=== PATIENT | female | born 1950 | race Caucasian/White ===

== ENCOUNTER 2016-12-25 09:02 | Day surgery (SDC) | payer MEDICARE, OTHER ==
[2016-12-20 17:58] VITALS: BMI 29.9
[~2016-12-25 09:02] MED LIST: LACTATED RINGERS 1,000 ML IV SCH; LIDOCAINE 1% 20 ML VIAL (10MG/ML) FOR IV START INTRADERMA PRN
[2016-12-25 09:20] VITALS: RESP 16; TEMP 98.6
--- NOTE | 2016-12-25 10:01 | P.GSHP ---
History of Present Illness H&P Date: 12/25/16 CHIEF COMPLAINT: GERD and colon screen HISTORY OF PRESENT ILLNESS: The patient is a 66-year-old male who presents reports gastroesophageal reflux disease and need for colon screen. Upper and lower endoscopy were offered for further evaluation and management. PAST MEDICAL HISTORY: Please see list. PAST SURGICAL HISTORY: Please see list. MEDICATIONS: Please see list. ALLERGIES: Please see list. SOCIAL HISTORY: No illicit drug use FAMILY HISTORY: No reports of Crohn disease or ulcerative colitis. REVIEW OF ORGAN SYSTEMS: CONSTITUTIONAL: No reports of fevers or chills. GI: Denies any blood in stools or constipation. PHYSICAL EXAM: VITAL SIGNS: Stable GENERAL: Well-developed pleasant in no acute distress. HEENT: No scleral icterus. Extraocular movements grossly intact. Moist buccal mucosa. NECK: Supple without lymphadenopathy. CHEST: Unlabored respirations. Equal bilateral excursions. CARDIOVASCULAR: Regular rate and rhythm. Distal 2+ pulses. ABDOMEN: Soft, nondistended. MUSCULOSKELETAL: No clubbing, cyanosis, or edema. ASSESSMENT: 1. Gastroesophageal reflux disease 2. Colon screen. PLAN: 1. Recommend proceeding with an upper and lower endoscopy Past Medical History Past Medical History: GERD/Reflux, Hyperlipidemia, Hypertension Additional Past Medical History / Comment(s): hx:diverticulosis(per old hx), back pain, hiatal hernia, History of Any Multi-Drug Resistant Organisms: None Reported Past Surgical History: Section, Tubal Ligation Additional Past Surgical History / Comment(s): bilateral bunionectomy, colonoscopy Past Anesthesia/Blood Transfusion Reactions: No Reported Reaction Past Psychological History: Anxiety, Depression Smoking Status: Never smoker Past Alcohol Use History: None Reported, Heavy Additional Past Alcohol Use History / Comment(s): past hx binge drinking stopped 6 months ago Past Drug Use History: None Reported - Past Family History Father Additional Family Medical History / Comment(s): comitted suiscide Mother Family Medical History: CVA/TIA, Dementia Medications and Allergies Home Medications Medication Instructions Recorded Confirmed Type Atenolol [Tenormin] 50 mg PO DAILY 01/19/15 12/25/16 History Lansoprazole [Prevacid] 30 mg PO DAILY 01/19/15 12/25/16 History amLODIPine [Norvasc] 10 mg PO DAILY 01/19/15 12/25/16 History DULoxetine HCL [Cymbalta] 60 mg PO DAILY 12/20/16 12/25/16 History Allergies Allergy/AdvReac Type Severity Reaction Status Date / Time No Known Allergies Allergy Verified 12/20/16 17:51 Surgical - Exam Vital Signs Temp Pulse Resp BP Pulse Ox 98.6 F 64 16 132/87 96 12/25/16 09:19 12/25/16 09:19 12/25/16 09:19 12/25/16 09:19 12/25/16 09:19
[2016-12-25] MEDS ORDERED: PROPOFOL 10 MG/ML 20 ML VIAL IV ONE (10:07)
[2016-12-25] MEDS ORDERED: LIDOCAINE 1% INJ 10MG/ML (20 ML MDV) ONE (10:07)
--- NOTE | 2016-12-25 10:40 | P.PCN ---
Date of Procedure: 12/25/16 Preoperative Diagnosis: Postoperative Diagnosis: Procedure(s) Performed: Implants: Indications for Procedure: Operative Findings: Description of Procedure: PREOPERATIVE DIAGNOSIS: Colonoscopy screening. POSTOPERATIVE DIAGNOSIS: Colonoscopy screening. Diverticulosis, scattered. OPERATION: Colonoscopy to the ileocecal valve and appendiceal orifice. SURGEON: Ena Joyce MD. ANESTHESIA: MAC. INDICATIONS: The patient is a 66-year-old female who presents for colonoscopy screening. Benefits and risks were described and informed consent was obtained. DESCRIPTION OF PROCEDURE: The patient had undergone Gatorade, MiraLAX and Dulcolax prep. She had been brought into the operating room and laid in the left lateral decubitus position. After adequate intravenous sedation, the rectum was examined with 2% lidocaine jelly. No external hemorrhoids were encountered. The rectal tone was within normal limits. No lesions were palpated in the rectal vault. An Olympus colonoscope was advanced until the ileocecal valve and appendiceal orifice were clearly viewed. The prep was excellent with clear visualization of the mucosal folds. The scope was removed with visualization of each mucosal fold. Scattered diverticulosis was encountered. No colonic polyps were found. No evidence of focal colitis was found. Retroflexion of the scope demonstrated grade 1 internal hemorrhoids without active bleeding or inflammation. The colon was desufflated. The patient had tolerated the procedure well. Withdrawal time was over 6 minutes. FINDINGS: Internal hemorrhoids, grade 1 No external prolapsed hemorrhoids. No arteriovenous malformations. No adenomatous polyps. No focal colitis. RECOMMENDATIONS: Lower endoscopy every 10 years per screening guidelines, 2026.
--- NOTE | 2016-12-25 10:43 | P.PCN ---
Date of Procedure: 12/25/16 Preoperative Diagnosis: Postoperative Diagnosis: Procedure(s) Performed: Implants: Indications for Procedure: Operative Findings: Description of Procedure: PREOPERATIVE DIAGNOSIS: Gastroesophageal reflux disease. POSTOPERATIVE DIAGNOSIS: Chronic gastritis with stigmata of prior bleed Diaphragmatic hiatal hernia, sliding type. Gastric polyps. Gastroesophageal reflux disease. OPERATION: Esophagogastroduodenoscopy with biopsies along antrum. SURGEON: Ena Joyce MD ANESTHESIA: MAC. INDICATIONS: The patient is a 66-year-old female who presents with a history of reflux disease. Benefits and risks of the procedure were described. Informed consent was obtained. DESCRIPTION: The patient was brought into the endoscopy suite and laid in the left lateral decubitus position. An Olympus gastroscope was passed along the posterior oropharynx down to the distal esophagus where the squamocolumnar junction was encountered at 35 cm from the incisors. The stomach was entered and minimal bile reflux was found. Multiple gastric polyps were identified along the fundus. Additional findings are listed below. Biopsies with cold forceps were obtained of the antrum. The first through third portion of the duodenum was examined and unremarkable. Retroflexion of the scope confirmed Hill grade 4 lower esophageal valve. The squamocolumnar junction demostrated LA grade B erosive esophagitis. The stomach was desufflated. The patient tolerated the procedure well. FINDINGS: Squamocolumnar junction 35 cm from the incisors. Diaphragmatic hiatus at 40 cm from the incisors. Diaphragmatic hiatal hernia sliding type 5 cm. Hill grade 4 lower esophageal valve. LA grade B erosive esophagitis. Multiple gastric polyps. No active duodenitis. RECOMMENDATIONS: Continue medical therapy. Further recommendations pending results of pathology report. Upper endoscopy as needed. Plan - Discharge Summary New Discharge Prescriptions: No Action amLODIPine [Norvasc] 10 mg PO DAILY Lansoprazole [Prevacid] 30 mg PO DAILY Atenolol [Tenormin] 50 mg PO DAILY DULoxetine HCL [Cymbalta] 60 mg PO DAILY Discharge Medication List Atenolol [Tenormin] 50 mg PO DAILY 01/19/15 [History] Lansoprazole [Prevacid] 30 mg PO DAILY 01/19/15 [History] amLODIPine [Norvasc] 10 mg PO DAILY 01/19/15 [History] DULoxetine HCL [Cymbalta] 60 mg PO DAILY 12/20/16 [History] Follow up Appointment(s)/Referral(s): Ena Joyce MD [STAFF PHYSICIAN] - 01/07/17 Patient Instructions/Handouts: Hiatal Hernia (GEN), Diverticulosis (DC), Diverticulosis Diet (GEN) Activity/Diet/Wound Care/Special Instructions: Repeat colonoscopy in 10 years, 2026 Discharge Disposition: HOME SELF-CARE
[2016-12-25 11:09] VITALS: BP 118/76; PULSE 61
== END 2016-12-25 11:33 | disposition home or self-care (01) ==
LOC: ORWHC2ENDO 09:02
PROVIDERS: ATTEND Surgery Plastic and Reconstructive Surgery
DX: Z12.11 Encounter for screening for malignant neoplasm of colon (principal); K29.50 Unspecified chronic gastritis without bleeding; K44.9 Diaphragmatic hernia without obstruction or gangrene; K31.7 Polyp of stomach and duodenum; K21.0 Gastro-esophageal reflux disease with esophagitis; K57.30 Diverticulosis of large intestine without perforation or abscess without bleeding; K64.0 First degree hemorrhoids; E78.5 Hyperlipidemia, unspecified; I10 Essential (primary) hypertension; F41.9 Anxiety disorder, unspecified; F32.9 Major depressive disorder, single episode, unspecified; Z79.899 Other long term (current) drug therapy
CPT/HCPCS: 88305; 88342; 43239; J2001; J2704; G0121; 45378

== ENCOUNTER → 2017-02-10 | Outpatient (CLI) | payer MEDICARE, OTHER ==
[2017-02-10 14:51] LABS: EKG EKG PERFORMED
[2017-02-10 15:14] LABS: CH 28.8; CHCM 32.5; HDW 2.45; HGB 14.7 gm/dL (11.4-16.0); MCHC 32.6 g/dL (31.0-37.0); MCV 88.9 fL (80.0-100.0); Mean Platelet Volume 6.6; RBC 5.07 m/uL (3.80-5.40); RDW 13.4 % (11.5-15.5); WBC 7.3 k/uL (3.8-10.6)
[2017-02-10 15:23] LABS: ALT 33 U/L (9-52); AST 20 U/L (14-36); Alkaline Phosphatase 120 U/L (38-126); Anion Gap 13 mmol/L; Blood Urea Nitrogen 16 mg/dL (7-17); Calcium 9.9 mg/dL (8.4-10.2); Carbon Dioxide 24 mmol/L (22-30); Chloride 106 mmol/L (98-107); Glucose 129 mg/dL (74-99); Non-African American GFR(MDRD) >60 (>60 ml/min/1.73 sqM); Potassium 4.1 mmol/L (3.5-5.1); Sodium 143 mmol/L (137-145); Total Bilirubin 0.6 mg/dL (0.2-1.3); Total Protein 7.4 g/dL (6.3-8.2)
== END | disposition home or self-care (01) ==
LOC: LABWHC1 14:38
PROVIDERS: ATTEND Surgery Plastic and Reconstructive Surgery
DX: Z01.812 Encounter for preprocedural laboratory examination (principal)
CPT/HCPCS: 36415; 80053; 85027; 93005

== ENCOUNTER 2017-02-14 07:30 | Inpatient (IN) | payer MEDICARE, OTHER ==
[2017-02-10 10:57] VITALS: BMI 29.9
[~2017-02-14 07:30] MED LIST changes: +DEXAMETHASONE SOD PHOSPHATE 10 MG/ML 1 ML VIAL IV ONE; +HEPARIN SODIUM,PORCINE 5,000 UNIT/ML 1 ML VIAL SQ ONE; +HYDROmorphone 1 MG/ML 1 ML SYRINGE IVP PRN; -LACTATED RINGERS 1,000 ML IV SCH; -LIDOCAINE 1% 20 ML VIAL (10MG/ML) FOR IV START INTRADERMA PRN; +ONDANSETRON 4 MG/2 ML VIAL IVP ONE; +ceFAZolin 2 GM in SODIUM CHLORIDE 0.9% 100 ML IVPB ONE
--- NOTE | 2017-02-14 08:44 | P.GSHP ---
History of Present Illness H&P Date: 02/14/17 CHIEF COMPLAINT: Gastroesophageal reflux disease. HISTORY OF PRESENT ILLNESS: Angela He is a 66 year-old female who presents with moderate to severe gastroesophageal reflux disease. Upon her last evaluation, she now has completed an upper endoscopy. For her upper endoscopy, findings had included diaphragmatic hiatal hernia and gastric polyps. She also completed a colonoscopy for which she denies any blood in her stools. Separately, evidence of diverticulosis was found. She now presents for further evaluation and management. PAST MEDICAL HISTORY: Please see list. PAST SURGICAL HISTORY: Please see list. MEDICATIONS: Please see list. ALLERGIES: Please see list. SOCIAL HISTORY: No illicit drug use FAMILY HISTORY: No reports of Crohn disease or ulcerative colitis. REVIEW OF ORGAN SYSTEMS: Constitutional: Reports over a 20-30 pound weight loss in the past several years. No fevers or chills. HEENT: Denies any trouble with vision, hearing or nosebleeds. No difficulty swallowing. LYMPHATIC: The patient denies any lumps and bumps around the neck. ENDOCRINE: Denies any thyroid disorders. Denies any blood sugar glucose intolerance. RESPIRATORY: Denies pneumonia. Denies any troubles with breathing or dyspnea on exertion. CARDIOVASCULAR: Denies any chest pain, palpitations, or recent heart attacks. GASTROINTESTINAL: Denies fatty food intolerance. Denies change in bowel habits and gas bloat. Gastroesophageal reflux disease. GENITOURINARY: Denies any blood in urine or increased urinary frequency. MUSCULOSKELETAL: Denies any back pain, stiffness or joint arthritis. NEUROLOGIC: Denies any numbness or tingling along the distal extremities. No seizure disorders or headaches. PSYCHIATRIC: Denies any depression or suicidal ideation. HEMATOLOGIC: Denies any abnormal bleeding or bruising. BREASTS: Denies any breast lumps, pain or nipple discharge. PHYSICAL EXAM: VITAL SIGNS: Stable Patient is a 66-year-old female. GENERAL: Well developed and in no acute distress. Pleasant. HEENT: No sclera icterus. Extraocular movements grossly intact. Moist buccal mucosa. Head is atraumatic, normocephalic. Hears conversational speech. No nasal drainage. NECK: Supple without lymphadenopathy. No JV distention. CHEST: Non-labored respirations and equal bilateral excursions. CARDIOVASCULAR: Regular rate and rhythm. Palpable 2+ radial pulses. ABDOMEN: Soft. Non-tender. Nondistended. MUSCULOSKELETAL: No clubbing, cyanosis or edema. NEUROLOGIC: No focal or lateralizing signs. PSYCH: Appropriate affect. Alert and oriented to person, place and time. STUDIES: Lower endoscopy was consistent with diverticulosis. No evidence of polyps was found. Upper endoscopy was consistent with 5 cm diaphragmatic hiatal hernia including gastric polyps. PATHOLOGY REPORT: Demonstrated no evidence of H.pylori gastritis. Chronic gastritis was identified however. ASSESSMENT: 1. Diaphragmatic paraesophageal hiatal hernia with severe gastroesophageal reflux disease. PLAN: 1. Recommend proceeding with a laparoscopic paraesophageal hiatal hernia with possible mesh. 2. Benefits and risks of surgical intervention was discussed including possibility of open technique. 3. Inpatient hospitalization recommended of 2 nights or less. 4. DVT prophylaxis. 5. Antibiotic prophylaxis. 6. Preoperative including. This and I reviewed in detail. Past Medical History Past Medical History: GERD/Reflux, Hyperlipidemia, Hypertension Additional Past Medical History / Comment(s): hx:diverticulosis(per old hx), back pain, hiatal hernia,. PAST HX KIDNEY STONES History of Any Multi-Drug Resistant Organisms: None Reported Past Surgical History: Section, Tubal Ligation Additional Past Surgical History / Comment(s): bilateral bunionectomy, colonoscopy, RECENT EGD AND COLONOSCOPY -12/25/16, ALSO HAD PRIOR LITHOTRIPSY Past Anesthesia/Blood Transfusion Reactions: No Reported Reaction Smoking Status: Never smoker - Past Family History Father Additional Family Medical History / Comment(s): comitted suiscide Mother Family Medical History: CVA/TIA, Dementia, Deep Vein Thrombosis (DVT) Medications and Allergies Home Medications Medication Instructions Recorded Confirmed Type Atenolol [Tenormin] 50 mg PO DAILY 01/19/15 02/10/17 History Lansoprazole [Prevacid] 30 mg PO DAILY 01/19/15 02/10/17 History amLODIPine [Norvasc] 10 mg PO DAILY 01/19/15 02/10/17 History DULoxetine HCL [Cymbalta] 60 mg PO DAILY 12/20/16 02/10/17 History Allergies Allergy/AdvReac Type Severity Reaction Status Date / Time No Known Allergies Allergy Verified 02/10/17 10:53
[2017-02-14] MEDS ORDERED: SCOPOLAMINE 1.5MG/72HR PATCH TRANSDERM STA (08:46)
[2017-02-14] MEDS: LACTATED RINGERS 1,000 ML IV SCH (09:21)
[2017-02-14] MEDS: ACETAMINOPHEN IV (For NPO) 1,000 MG in EMPTY BAG 1 BAG IVPB ONE ×2 (09:34→10:14)
[2017-02-14] MEDS ORDERED: GLYCOPYRROLATE 0.2 MG/ML 2 ML VIAL ONE (10:37)
[2017-02-14] MEDS ORDERED: fentaNYL (PF) 50 MCG/ML 2 ML AMP ONE (10:37)
[2017-02-14] MEDS ORDERED: ePHEDrine 50 MG/ML 1 ML AMP ONE (10:37)
[2017-02-14] MEDS ORDERED: SUCCINYLCHOLINE CHLORIDE 100 MG/5 ML SYR IV ONE (10:37)
[2017-02-14] MEDS ORDERED: NEOSTIGMINE 1 MG/ML 10 ML VIAL ONE (10:37)
[2017-02-14] MEDS ORDERED: PROPOFOL 10 MG/ML 20 ML VIAL IV ONE (10:37)
[2017-02-14] MEDS ORDERED: KETOROLAC 30 MG/ML 1 ML VIAL ONE (10:37)
[2017-02-14] MEDS ORDERED: MIDAZOLAM 2 MG/2 ML VIAL ONE (10:37)
[2017-02-14] MEDS ORDERED: LIDOCAINE 1% INJ 10MG/ML (20 ML MDV) ONE (10:37)
[2017-02-14] MEDS ORDERED: ROCURONIUM BROMIDE 10 MG/ML 10 ML VIAL IV ONE (10:37)
[2017-02-14] MEDS ORDERED: BUPIVACAIN-EPI 0.25%-1:200,000 30 ML VIAL SQ ONE (11:09)
[2017-02-14] MEDS ORDERED: LACTATED RINGERS 1,000 ML IV ONE ×2 (12:07→13:59)
[2017-02-14] MEDS ORDERED: ONDANSETRON 4 MG/2 ML VIAL IVP PRN (13:07)
[2017-02-14] MEDS ORDERED: diphenhydrAMINE 50 MG/ML 1 ML VIAL IVP PRN (13:07)
[2017-02-14] MEDS ORDERED: HYDROcodone/APAP 15 ML SOLUTION PO PRN (13:07)
[2017-02-14] MEDS ORDERED: NALOXONE 0.4 MG/ML 1 ML VIAL IV PRN (13:07)
--- NOTE | 2017-02-14 13:07 | P.PCN ---
Date of Procedure: 02/14/17 Preoperative Diagnosis: Paraesophageal hiatal hernia, gastric esophageal reflux disease Postoperative Diagnosis: Same, 4 cm incarcerated diaphragmatic hiatal hernia Procedure(s) Performed: Paraesophageal hiatal hernia repair with mesh, intraoperative EGD Implants: Anesthesia: GETA, local Surgeon: Ena Joyce Estimated Blood Loss (ml): 15 Pathology: none sent Condition: stable Disposition: floor Indications for Procedure: Operative Findings: Paraesophageal diaphragmatic hiatal hernia requiring dissection into the the aortic arch. Lead point of mediastinal lipoma resected. Intra-abdominal esophageal length of 4 cm obtained. Description of Procedure:
[2017-02-14] MEDS ORDERED: ACETAMINOPHEN IV (For NPO) 1,000 MG in EMPTY BAG 1 BAG IVPB ONE (13:30)
--- NOTE | 2017-02-14 16:30 | P.OP ---
Date of Procedure: 02/14/17 Preoperative Diagnosis: Postoperative Diagnosis: Procedure(s) Performed: Implants: Indications for Procedure: Operative Findings: Description of Procedure: SURGEON: VONDA PETE MD PREOPERATIVE DIAGNOSES: 1. Symptomatic paraesophageal diaphragmatic hiatal hernia. 2. Gastroesophageal reflux disease. 3. Hypertensive heart disease. 4. Depression without psychoses. 5. Obesity, BMI 30. 6. Hyperlipidemia. 7. Personal history of diverticulosis. POSTOPERATIVE DIAGNOSES: 1. Symptomatic paraesophageal diaphragmatic hiatal hernia. 2. Gastroesophageal reflux disease. 3. Hypertensive heart disease. 4. Depression without psychoses. 5. Obesity, BMI 30. 6. Hyperlipidemia. 7. Personal history of diverticulosis. 8. Paraesophageal midline diaphragmatic hernia, 4 cm, with incarceration. OPERATION: 1. Laparoscopic repair of incarcerated midline paraesophageal hiatal hernia 4 cm with mesh, [place] Biopatch A 8 x 8 cm. 2. Intraoperative esophagogastroduodenoscopy. ANESTHESIA: General with 30 mL 0.25% Marcaine with epinephrine. ESTIMATED BLOOD LOSS: 15 mL SPECIMENS: None. COMPLICATIONS: None. INDICATIONS: The patient is a 66-year-old female with long-standing history of gastroesophageal reflux disease including regurgitation. She completed an upper endoscopy demonstrating a symptomatic diaphragmatic hiatal hernia. Additionally a manometry is performed without evidence of achalasia or scleroderma. Her total lower esophageal sphincter length including intra- abdominal length were within normal limits. Preoperatively, she completed a 2 week high-protein low calorie diet to address hepatomegaly. Surgical intervention with a paraesophageal hiatal hernia repair and mesh was described. Risks and benefits including but not limited to collapse of the lung, dysphagia, recurrence, need for revisional surgery were reviewed in detail. Informed consent was obtained as all benefits and risks were described. DESCRIPTION: Patient was brought into the operating room, laid in supine position on a split-leg table. After general induction, the abdomen was prepped and draped in a standard sterile fashion using ChloraPrep. An [place] drape was placed. Angel catheter was placed. A timeout protocol was confirmed with the surgical team, for which the patient's name, procedure to be performed including DVT prophylaxis with bilateral SCDs, and preoperative antibiotics were also confirmed. From the xiphoid to the umbilicus, an incision was made 15 cm distal and off to the left of the xiphoid using #11 blade after localizing the skin with anesthetic. A 0-degree 5 mm laparoscopic trocar entry was performed to enter the peritoneal cavity. The abdomen was insufflated to 15 mmHg pressure she tolerated well. Diagnostic laparoscopy demonstrated no hepatomegaly. Additionally, an anterior defect on the hiatus consistent with diaphragmatic paraesophageal hiatal hernia was identified incorporating the gastric cardia into the thoracic cavity. A 5 mm trocar was placed along the left lateral costal margin followed by a 12 mm port along the left midclavicular line. A Mary medium-sized liver retractor was placed below the xiphoid and held in place using an iron internist. The patient was placed in steep reverse Trendelenburg position. Initial attention was brougth at the hiatus. Circumferentially, the phrenoesophageal ligament and the hiatus were mobilized such that the right and left evangelist were visualized. A gastrohepatic artery was controlled using a 12 mm clip handicapped teacher including Sonicision. Moderate dissection of the esophagus was performed to the aortic arch well into the mediastinum. A lead point of the incarcerated paraesophageal hiatal hernia was identified and excised using the Sonicision. All measurements were performed with a ruler. The final hiatal defect was 4 cm in size. The distal esophagus intra-abdominal length was also 4 cm despite moderate dissection into the chest was performed. The bilateral vagi nerves were identified and freed from harm during this portion of dissection. To confirm the squamocolumnar junction, I went to the head of the [facility] to perform an intraoperative esophagogastroduodenoscopy. An Olympus gastroscope was placed along the posterior oropharynx. The scope was advanced along the distal esophagus into the proximal stomach. Using laparoscopy, the GE junction was confirmed. The stomach was desufflated and the scope was removed. I then re-scrubbed into the case. The hiatus was reapproximated using 2-0 Surgidac on an Endo Stitch with a [id number] suture and 1 single stitch posteriorly. [place] Biopatch A 8 x 8 cm was cut in a "weber-hole fashion" and placed as an onlay and buttressed to the anterior hiatal hernia repair. The mesh was tacked to the left evangelist using 2-0 Surgidac. The hiatal repair was consistent with a 56-[place] bougie as a fenestrated grasper had easily passed through the repair. I then went to the head of the bed to do a repeat intraoperative esophagogastroduodenoscopy. The squamocolumnar junction laid into the intra- abdominal cavity. Additionally no injury to the stomach or esophagus was identified. No gastric or duodenal ulcers were found. No bile was found in the stomach. The stomach was desufflated. This concluded the endoscopic portion of the procedure. All instruments and pneumoperitoneum were evacuated from the abdominal cavity. The incisions were reapproximated using 4-0 Monocryl in a subcuticular fashion for the skin. Total of 30 mL 0.25% Marcaine with epinephrine was infiltrated to all wounds for postop analgesia. The skin was cleansed with hydrogen peroxide. Dermabond was applied to the skin. At the end of the procedure, needle, sponge, and instrument count was verified correct by surgical nurse practitioner. Total of 2 mL blood loss. Intraoperative films were taken and shared with the patient's family. FINDINGS: 1. 4 cm midline paraesophageal hiatal hernia, incarcerated type. 2. [place] Biopatch A 8 x 8 cm used for hernioplasty of the hiatus. 3. Hiatus repair consistent with 56-[place] bougie.
--- NOTE | 2017-02-14 16:36 | P.PN ---
Progress Note - Text Patient seen and evaluated. No reports of moderate nausea. She is pending an esophagram. Patient may be discharged once medically stable and tolerating liquids. Antacid therapy will be discontinued upon discharge.
[2017-02-14] MEDS: 0.9% NACL WITH KCL 20 MEQ/L 1,000 ML IV SCH ×3 (16:43→23:32)
[2017-02-14] MEDS: AMPICILLIN-SULBACTAM 3 GM in SODIUM CHLORIDE 0.9% 100 ML IVPB SCH ×2 (18:59→23:20)
[2017-02-14] MEDS: SIMETHICONE 40 MG/0.6 ML DROPS 2,000 MG/30 ML BOTTLE PO SCH ×2 (19:00→23:22)
[2017-02-14] MEDS: HYOSCYAMINE ORAL DROPS 1.875 MG/15 ML BOTTLE PO SCH ×2 (19:01→23:21)
[2017-02-14] MEDS: HYDROmorphone 1 MG/ML 1 ML SYRINGE IVP PRN ×2 (19:20→23:25)
[2017-02-15] MEDS: LACTATED RINGERS 1,000 ML IV SCH (03:32)
[2017-02-15 05:48] LABS: Magnesium 1.8 mg/dL (1.6-2.3); Phosphorous 3.2 mg/dL (2.5-4.5); Potassium 4.3 mmol/L (3.5-5.1)
[2017-02-15] MEDS: SIMETHICONE 40 MG/0.6 ML DROPS 2,000 MG/30 ML BOTTLE PO SCH (06:03)
[2017-02-15] MEDS: HYOSCYAMINE ORAL DROPS 1.875 MG/15 ML BOTTLE PO SCH (06:03)
[2017-02-15] MEDS: HYDROmorphone 1 MG/ML 1 ML SYRINGE IVP PRN (06:06)
[2017-02-15] MEDS ORDERED: 0.9% NACL WITH KCL 20 MEQ/L 1,000 ML IV SCH (08:00)
--- NOTE | 2017-02-15 08:18 | FL ---
EXAMINATION TYPE: FL UGI DATE OF EXAM: 02/15/2017 LIMITED UGI-ESOPHAGRAM: CLINICAL HISTORY: Morbid Obesity, lap band placed earlier today. TECHNIQUE: Limited esophagram is performed utilizing 20 oz of Omnipaque 350. FINDINGS: The patient swallowed contrast without difficulty or delay. Esophageal peristalsis and mo tility are within normal limits. There is good flow of contrast along the diaphragmatic hiatus into t he stomach, there is no evidence of contrast extravasation to suggest leak. No persistent hiatal andrew ia is seen. Patient remains asymptomatic. IMPRESSION: No evidence of leak or significant obstruction status post Bassam fundoplication
[2017-02-15] MEDS ORDERED: ATENOLOL 50 MG TAB PO SCH (09:00)
[2017-02-15] MEDS ORDERED: DULoxetine HCL 60 MG CAPSULE.DR PO SCH (09:00)
[2017-02-15] MEDS ORDERED: amLODIPine 10 MG TAB PO SCH (09:00)
[2017-02-15] MEDS ORDERED: ENOXAPARIN 40 MG/0.4 ML SYRINGE SQ SCH (09:00)
[2017-02-15] MEDS ORDERED: ESOMEPRAZOLE 20 MG in SODIUM CHLORIDE 0.9% 50 ML IVPB SCH (09:00)
[2017-02-15 09:02] VITALS: BP 127/68; PULSE 89; RESP 18; TEMP 98
--- NOTE | 2017-02-15 10:31 | P.PN ---
Progress Note - Text Patient had completed her esophagram. Discussion with nurse confirms that she is doing well. Patient may be discharged home today.
--- NOTE | 2017-02-15 10:33 | P.DS ---
Providers Date of admission: 02/14/17 08:15 Expected date of discharge: 02/15/17 Attending physician: Ena Joyce Primary care physician: Carlos Archer - Discharge Diagnosis(es) (1) Paraesophageal hiatal hernia Current Visit: Yes Status: Acute (2) Gastroesophageal reflux disease Current Visit: Yes Status: Acute (3) Hypertensive heart disease Current Visit: Yes Status: Acute (4) Hyperlipidemia Current Visit: Yes Status: Acute (5) Depression Current Visit: Yes Status: Acute (6) Obesity (BMI 30.0-34.9) Current Visit: Yes Status: Acute Hospital Course: The patient is a 66-year-old female who underwent surgical intervention for reflux disease including diaphragmatic hiatal hernia incarcerated. Postoperatively, she was tolerating liquids. An esophagram was performed. Prior to discharge, post-Camila diet education was reviewed. No lifting instructions was extended for 4 weeks. Patient will follow-up in the office within 1-2 weeks. Pertinent Studies: Esophagram demonstrating no leaks or obstruction Procedures: OPERATION: 1. Laparoscopic repair of incarcerated midline paraesophageal hiatal hernia 4 cm with mesh, [place] Biopatch A 8 x 8 cm. 2. Intraoperative esophagogastroduodenoscopy. Patient Condition at Discharge: Stable Plan - Discharge Summary New Discharge Prescriptions: New Hydrocodone/Acetaminophen [[place] 5-325] 1 each PO Q6HR PRN #10 tab PRN Reason: Pain Hyoscyamine Oral Drops [Levsin Drops] 0.125 mg PO Q6HR bottle Simethicone 40 mg/0.6 ml Drops [Mylicon Drops] 40 mg PO Q6HR bottle Continue amLODIPine [Norvasc] 10 mg PO DAILY Atenolol [Tenormin] 50 mg PO DAILY DULoxetine HCL [Cymbalta] 60 mg PO DAILY Discontinued Lansoprazole [Prevacid] 30 mg PO DAILY Discharge Medication List Atenolol [Tenormin] 50 mg PO DAILY 01/19/15 [History] amLODIPine [Norvasc] 10 mg PO DAILY 01/19/15 [History] DULoxetine HCL [Cymbalta] 60 mg PO DAILY 12/20/16 [History] Hydrocodone/Acetaminophen [[place] 5-325] 1 each PO Q6HR PRN #10 tab 02/14/17 [Rx] Hyoscyamine Oral Drops [Levsin Drops] 0.125 mg PO Q6HR bottle 02/15/17 [Rx] Simethicone 40 mg/0.6 ml Drops [Mylicon Drops] 40 mg PO Q6HR bottle 02/15/17 [ Rx] Follow up Appointment(s)/Referral(s): Ena Joyce MD [STAFF PHYSICIAN] - 02/25/17 Patient Instructions/Handouts: Laparoscopic Hiatal Hernia Repair (DC) Activity/Diet/Wound Care/Special Instructions: Please follow Camila diet per Dr. Joyce by [facility]. No lifting over 4 pounds in 4 weeks. No carbonated beverages. No breads. No meats. May shower. No bath tub soaks. Recommend [id number] Aleve or Tylenol for pain. Discharge Disposition: HOME SELF-CARE
[2017-02-16] MEDS ORDERED: BISACODYL 5 MG TABLET.DR PO PRN (08:00)
== END 2017-02-15 11:40 | disposition home or self-care (01) | DRG 328 ==
LOC: EDSTATUS 07:30 → 2ORWHC 08:15 → 6PED 13:02
PROVIDERS: ADMIT Surgery Plastic and Reconstructive Surgery; ATTEND Surgery Plastic and Reconstructive Surgery
PROC: 0BUR4JZ (ICD-10-PCS; 2017-02-14)
PROC: 0DJ08ZZ Inspection of Upper Intestinal Tract, Via Natural or Artificial Opening Endoscopic (ICD-10-PCS; 2017-02-14)
PROC: 0BUS4JZ (ICD-10-PCS; principal; 2017-02-14 09:55)
DX: K44.0 Diaphragmatic hernia with obstruction, without gangrene (principal); I11.9 Hypertensive heart disease without heart failure; E66.9 Obesity, unspecified; K21.9 Gastro-esophageal reflux disease without esophagitis; F32.9 Major depressive disorder, single episode, unspecified; E78.5 Hyperlipidemia, unspecified; K57.90 Diverticulosis of intestine, part unspecified, without perforation or abscess without bleeding; K31.7 Polyp of stomach and duodenum; Z79.899 Other long term (current) drug therapy; Z87.442 Personal history of urinary calculi
CPT/HCPCS: 74240; 80051; 83735; 84100

== ENCOUNTER → 2017-12-31 | Outpatient (CLI) | payer MEDICARE, OTHER ==
--- NOTE | 2018-01-01 13:53 | MM ---
Reason for exam: screening (asymptomatic). Last mammogram was performed 8 years and 2 months ago. History: Patient is postmenopausal and had first child at age 33. Physical Findings: A clinical breast exam by your physician is recommended on an annual basis and results should be correlated with mammographic findings. MG 3D Screening Mammo W/Cad Bilateral CC and MLO view(s) were taken. Prior study comparison: October 19, 2009, bilateral digital screening mammogram. The breast tissue is heterogeneously dense. This may lower the sensitivity of mammography. Stable benign calcifications. There is no discrete abnormality. No significant changes when compared with prior studies. ASSESSMENT: Benign, BI-RAD 2 RECOMMENDATION: Routine screening mammogram of both breasts in 1 year.
== END | disposition home or self-care (01) ==
LOC: RADMAMWWP 07:49
PROVIDERS: ATTEND Family Medicine
DX: Z12.31 Encounter for screening mammogram for malignant neoplasm of breast (principal)
CPT/HCPCS: 77063; 77067

== ENCOUNTER → 2018-07-08 | Outpatient (CLI) | payer MEDICARE, OTHER ==
--- NOTE | 2018-07-08 14:11 | EST ---
EXERCISE STRESS AGE: 68 SEX: F HT: 5'5" WT: 180 PROTOCOL: Babak Stress Test STAGE: I DURATION OF EXERCISE: 3:00 HEART RATE REST: 120 BLOOD PRESSURE REST: 129/92 MAXIMUM HEART RATE ACHIEVED: 164 MAXIMUM BLOOD PRESSURE: 171/89 85% MPHR: 130 100% MPHR: 153 METS: 4.6 INDICATIONS: Palpitations. CLINICAL INFORMATION: Baseline rhythm is sinus mechanism, rate of 120. Baseline blood pressure 129/92 mmHg. Patient exercised on Babak protocol for 3 minutes reaching peak rate 164 beats per minute which is equal to 107% maximum predicted heart rate. Peak blood pressure 171/89 mmHg. Test was terminated secondary to fatigue. There was no chest pain. Electrocardiograph monitoring revealed no evidence of diagnostic ischemic ST deviation. FINDINGS: 1. Poor exercise tolerance with baseline sinus tachycardia. 2. No evidence of exercise-induced ischemia on the electrocardiogram. MMODL / IJN: [id number] /
== END | disposition home or self-care (01) ==
LOC: RADNMMAIN 08:46
PROVIDERS: ATTEND Family Medicine
DX: R00.0 Tachycardia, unspecified (principal)
CPT/HCPCS: 93017

== ENCOUNTER → 2019-04-06 | Outpatient (CLI) | payer MEDICARE ==
--- NOTE | 2019-04-07 10:57 | MM ---
Reason for exam: screening (asymptomatic). Last mammogram was performed 1 year and 3 months ago. History: Patient is postmenopausal and had first child at age 33. Physical Findings: A clinical breast exam by your physician is recommended on an annual basis and results should be correlated with mammographic findings. MG 3D Screening Mammo W/Cad Bilateral CC and MLO view(s) were taken. Prior study comparison: December 31, 2017, bilateral MG 3d screening mammo w/cad. October 19, 2009, bilateral digital screening mammogram. The breast tissue is heterogeneously dense. This may lower the sensitivity of mammography. Benign appearing bilateral calcifications. No suspicious abnormality. No significant changes when compared with prior studies. ASSESSMENT: Benign, BI-RAD 2 RECOMMENDATION: Routine screening mammogram of both breasts in 1 year.
== END | disposition home or self-care (01) ==
LOC: RADMAMWWP 08:21
PROVIDERS: ATTEND Family Medicine
DX: Z12.31 Encounter for screening mammogram for malignant neoplasm of breast (principal)
CPT/HCPCS: 77063; 77067

== ENCOUNTER → 2019-09-30 | Outpatient (CLI) | payer MEDICARE ==
--- NOTE | 2019-10-01 08:57 | US ---
EXAMINATION TYPE: US thyroid st tissue head/neck DATE OF EXAM: 09/30/2019 COMPARISON: NONE CLINICAL HISTORY: E21.0 Primary hyperparathyroidism. GLAND SIZE: Right Lobe: 4.2 x 1.7 x 1.4 cm Overall Parenchyma: homogenous Left Lobe: 3.9 x 1.1 x 1.4 cm Overall Parenchyma: homogeneous Isthmus Thickness: 0.2 cm NODULES RIGHT: # of nodules measured on right: 1 1. 0.7 X 0.5 x 0.7 cm anechoic cystic nodule at the mid pole with well-defined margins. This nodul e is wider than tall and shows no intranodular vascularity. LEFT: # of nodules measured on left: 0 ISTHMUS: # of nodules measured in the isthmus: 0 Bilateral neck scanned, no evidence of lymphadenopathy. Subcentimeter nodules noted bilaterally. IMPRESSION: Bilateral subcentimeter thyroid nodules with no nodule measuring 1 cm or greater.
== END | disposition home or self-care (01) ==
LOC: RADUSMAIN 16:04
PROVIDERS: ATTEND Internal Medicine Endocrinology, Diabetes & Metabolism
DX: E04.2 Nontoxic multinodular goiter (principal); E83.52 Hypercalcemia; R53.83 Other fatigue
CPT/HCPCS: 76536

== ENCOUNTER → 2020-02-02 | Outpatient (CLI) | payer MEDICARE ==
[2020-02-02 15:38] LABS: ALT 15 U/L (4-34); AST 22 U/L (14-36); African American GFR (CKD) >90 (>60 ml/min/1.73 sqM); Albumin 4.9 g/dL (3.5-5.0); Albumin/Globulin Ratio 1.8; Alkaline Phosphatase 107 U/L (38-126); Anion Gap 10 mmol/L; Blood Urea Nitrogen 18 mg/dL (7-17); Calcium 10.5 mg/dL (8.4-10.2); Carbon Dioxide 27 mmol/L (22-30); Chloride 104 mmol/L (98-107); Globulin 2.8 g/dL; Glucose 116 mg/dL (74-99); Non-African American GFR(CKD) >90 (>60 ml/min/1.73 sqM); Potassium 4.2 mmol/L (3.5-5.1); Sodium 141 mmol/L (137-145); Total Protein 7.7 g/dL (6.3-8.2)
== END | disposition home or self-care (01) ==
LOC: LABWHC1 13:57
PROVIDERS: ATTEND Internal Medicine Endocrinology, Diabetes & Metabolism
DX: E21.0 Primary hyperparathyroidism (principal); R53.83 Other fatigue
CPT/HCPCS: 36415; 80053; 82306; 83970

== ENCOUNTER 2020-06-03 12:12 | Emergency (ER) | payer MEDICARE ==
[2020-06-03 12:20] VITALS: RESP 18; TEMP 100
--- NOTE | 2020-06-03 12:38 | ED ---
General Adult HPI - General Chief complaint: Fever Stated complaint: COVID symptoms Time Seen by Provider: 06/03/20 12:29 Source: patient Mode of arrival: ambulatory Limitations: no limitations - History of Present Illness Initial comments: Patient presents the ED complaining of having a fever, myalgias, nasal congestion and loss of smell and taste since last night. Patient states that someone at her daughter's place of work was recently diagnosed with Covid. Patient states that her daughter does not have any symptoms. Patient denies headache, neck stiffness, sore throat, chest pain, dyspnea, cough, palpitations, dizziness, abdominal pain, nausea/vomiting/diarrhea, dysuria or urinary symptoms, leg or calf swelling or pain, or any other symptoms or complaints. Patient denies taking any antipyretic medication today. - Related Data Home Medications Medication Instructions Recorded Confirmed Atenolol [Tenormin] 50 mg PO DAILY 01/19/15 02/14/17 amLODIPine [Norvasc] 10 mg PO DAILY 01/19/15 02/14/17 DULoxetine HCL [Cymbalta] 60 mg PO DAILY 12/20/16 02/14/17 Previous Rx's Medication Instructions Recorded Hydrocodone/Acetaminophen [[place] 1 each PO Q6HR PRN #10 tab 02/14/17 5-325] Hyoscyamine Oral Drops [Levsin 0.125 mg PO Q6HR bottle 02/15/17 Drops] Simethicone 40 mg/0.6 ml Drops 40 mg PO Q6HR bottle 02/15/17 [Mylicon Drops] Allergies Allergy/AdvReac Type Severity Reaction Status Date / Time No Known Allergies Allergy Verified 06/03/20 12:21 Review of Systems ROS Statement: Those systems with pertinent positive or pertinent negative responses have been documented in the HPI. ROS Other: All systems not noted in ROS Statement are negative. Past Medical History Past Medical History: GERD/Reflux, Hyperlipidemia, Hypertension Additional Past Medical History / Comment(s): hx:diverticulosis(per old hx), back pain, hiatal hernia,. PAST HX KIDNEY STONES History of Any Multi-Drug Resistant Organisms: None Reported Past Surgical History: Section, Tubal Ligation Additional Past Surgical History / Comment(s): bilateral bunionectomy, colonoscopy, RECENT EGD AND COLONOSCOPY -12/25/16, ALSO HAD PRIOR LITHOTRIPSY Past Anesthesia/Blood Transfusion Reactions: No Reported Reaction Past Psychological History: Anxiety, Depression Smoking Status: Never smoker Past Alcohol Use History: None Reported Past Drug Use History: None Reported - Past Family History Father Additional Family Medical History / Comment(s): comitted suiscide Mother Family Medical History: CVA/TIA, Dementia, Deep Vein Thrombosis (DVT) General Exam Limitations: no limitations General appearance: alert, in no apparent distress Head exam: Present: atraumatic, normocephalic Eye exam: Present: normal appearance, EOMI ENT exam: Present: normal oropharynx, mucous membranes moist Neck exam: Present: other (trachea is in midline). Absent: tenderness, meningismus Respiratory exam: Present: normal lung sounds bilaterally. Absent: respiratory distress, wheezes, rales, rhonchi, stridor Cardiovascular Exam: Present: regular rate, normal rhythm, normal heart sounds, other (normal radial pulses bilaterally) GI/Abdominal exam: Present: soft. Absent: distended, tenderness, guarding Extremities exam: Absent: tenderness, pedal edema, calf tenderness Neurological exam: Present: alert, oriented X3. Absent: motor sensory deficit Psychiatric exam: Present: normal affect, normal mood Skin exam: Present: warm, dry, intact, normal color Course Vital Signs 06/03/20 06/03/20 12:18 14:13 Temperature 100.0 F H 100.0 F H Pulse Rate 77 75 Respiratory 18 18 Rate Blood Pressure 149/78 145/88 O2 Sat by Pulse 98 92 L Oximetry - Reevaluation(s) Reevaluation #1: 06/03/20 14:19 Patient denies development of any new symptoms while in the ED. Patient remains alert and breathing comfortably. Patient denies having a cough or dyspnea. Patient also denies having any chest pain. Patient's chest x-ray is negative for infectious findings. Patient is aware of her test results, and she feels comfortable going home at this time. Patient was counseled about Covid-19, including isolation precautions. Patient was made aware of her chest x-ray findings, and she was instructed to follow up closely with her primary care provider to obtain a follow-up chest CT-> she agrees to do so. Patient was clearly explained return and follow-up instructions, and she feels comfortable with this plan. EKG Findings - EKG Comments: EKG Findings:: normal sinus rhythm, ventricular rate of 71 bpm, normal LA and QRS intervals, normal QT interval, no ectopy, normal axis, no ST or T-wave abnormality Medical Decision Making - Lab Data Result diagrams: 06/03/20 12:45 06/03/20 12:45 Lab Results 06/03/20 06/03/20 06/03/20 Range/Units 12:45 12:45 12:45 WBC 5.5 (3.8-10.6) k/uL RBC 5.13 (3.80-5.40) m/uL Hgb 15.2 (11.4-16.0) gm/dL Hct 47.3 H (34.0-46.0) % MCV 92.3 (80.0-100.0) fL MCH 29.6 (25.0-35.0) pg MCHC 32.1 (31.0-37.0) g/dL RDW 13.7 (11.5-15.5) % Plt Count 337 (150-450) k/uL Neutrophils % 69 % Lymphocytes % 22 % Monocytes % 6 % Eosinophils % 1 % Basophils % 1 % Neutrophils # 3.8 (1.3-7.7) k/uL Lymphocytes # 1.2 (1.0-4.8) k/uL Monocytes # 0.4 (0-1.0) k/uL Eosinophils # 0.0 (0-0.7) k/uL Basophils # 0.0 (0-0.2) k/uL PT 9.4 (9.0-12.0) sec INR 0.9 (<1.2) APTT 24.4 (22.0-30.0) sec Sodium 137 (137-145) mmol/L Potassium 4.2 (3.5-5.1) mmol/L Chloride 102 (98-107) mmol/L Carbon Dioxide 25 (22-30) mmol/L Anion Gap 10 mmol/L BUN 13 (7-17) mg/dL Creatinine 0.60 (0.52-1.04) mg/dL Est GFR (CKD-EPI)AfAm >90 (>60 ml/min/1.73 sqM) Est GFR (CKD-EPI)NonAf >90 (>60 ml/min/1.73 sqM) Glucose 122 H (74-99) mg/dL Plasma Lactic Acid Sesar (0.7-2.0) mmol/L Calcium 8.6 (8.4-10.2) mg/dL Magnesium 2.0 (1.6-2.3) mg/dL Total Bilirubin 0.8 (0.2-1.3) mg/dL AST 28 (14-36) U/L ALT 16 (4-34) U/L Alkaline Phosphatase 105 (38-126) U/L Lactate Dehydrogenase 685 H (313-618) U/L C-Reactive Protein 26.2 H (<10.0) mg/L Total Protein 7.6 (6.3-8.2) g/dL Albumin 4.4 (3.5-5.0) g/dL Coronavirus (PCR) (Not Detectd) Influenza Type A RNA (Not Detectd) Influenza Type B (PCR) (Not Detectd) 06/03/20 06/03/20 06/03/20 Range/Units 12:45 12:45 13:09 WBC (3.8-10.6) k/uL RBC (3.80-5.40) m/uL Hgb (11.4-16.0) gm/dL Hct (34.0-46.0) % MCV (80.0-100.0) fL MCH (25.0-35.0) pg MCHC (31.0-37.0) g/dL RDW (11.5-15.5) % Plt Count (150-450) k/uL Neutrophils % % Lymphocytes % % Monocytes % % Eosinophils % % Basophils % % Neutrophils # (1.3-7.7) k/uL Lymphocytes # (1.0-4.8) k/uL Monocytes # (0-1.0) k/uL Eosinophils # (0-0.7) k/uL Basophils # (0-0.2) k/uL PT (9.0-12.0) sec INR (<1.2) APTT (22.0-30.0) sec Sodium (137-145) mmol/L Potassium (3.5-5.1) mmol/L Chloride (98-107) mmol/L Carbon Dioxide (22-30) mmol/L Anion Gap mmol/L BUN (7-17) mg/dL Creatinine (0.52-1.04) mg/dL Est GFR (CKD-EPI)AfAm (>60 ml/min/1.73 sqM) Est GFR (CKD-EPI)NonAf (>60 ml/min/1.73 sqM) Glucose (74-99) mg/dL Plasma Lactic Acid Sesar 1.8 (0.7-2.0) mmol/L Calcium (8.4-10.2) mg/dL Magnesium (1.6-2.3) mg/dL Total Bilirubin (0.2-1.3) mg/dL AST (14-36) U/L ALT (4-34) U/L Alkaline Phosphatase (38-126) U/L Lactate Dehydrogenase (313-618) U/L C-Reactive Protein (<10.0) mg/L Total Protein (6.3-8.2) g/dL Albumin (3.5-5.0) g/dL Coronavirus (PCR) Detected A (Not Detectd) Influenza Type A RNA Not Detected (Not Detectd) Influenza Type B (PCR) Not Detected (Not Detectd) Disposition Clinical Impression: COVID-19 Disposition: HOME SELF-CARE Condition: Stable Instructions (If sedation given, give patient instructions): Fever in Adults (ED), Upper Respiratory Infection (ED) Additional Instructions: Return to the ER immediately should you develop chest pain, shortness of breath, feeling dizzy or faint, or new or worsening symptoms. Follow up closely with your primary care provider. Is patient prescribed a controlled substance at d/c from ED?: No Referrals: Carlos Archer DO [Primary Care Provider] - 1-2 days Time of Disposition: 14:24
[2020-06-03 13:23] LABS: Basophils % (A) 1 %; Eosinophils % (A) 1 %; HCT 47.3 % (34.0-46.0); HGB 15.2 gm/dL (11.4-16.0); Lymphocytes # (A) 1.2 k/uL (1.0-4.8); Lymphocytes % (A) 22 %; MCH 29.6 pg (25.0-35.0); MCHC 32.1 g/dL (31.0-37.0); MCV 92.3 fL (80.0-100.0); Mean Platelet Volume 6.8; Monocytes # (A) 0.4 k/uL (0-1.0); Monocytes % (A) 6 %; Neutrophils # (A) 3.8 k/uL (1.3-7.7); Neutrophils % (A) 69 %; Platelet Count 337 k/uL (150-450); RBC 5.13 m/uL (3.80-5.40); RDW 13.7 % (11.5-15.5); WBC 5.5 k/uL (3.8-10.6)
[2020-06-03 13:28] LABS: INR 0.9 (<1.2); Partial Thromboplastin Time 24.4 sec (22.0-30.0); Prothrombin Time 9.4 sec (9.0-12.0)
[2020-06-03 13:49] LABS: ALT 16 U/L (4-34); African American GFR (CKD) >90 (>60 ml/min/1.73 sqM); Albumin 4.4 g/dL (3.5-5.0); Anion Gap 10 mmol/L; Blood Urea Nitrogen 13 mg/dL (7-17); C Reactive Protein 26.2 mg/L (<10.0); Calcium 8.6 mg/dL (8.4-10.2); Carbon Dioxide 25 mmol/L (22-30); Chloride 102 mmol/L (98-107); Glucose 122 mg/dL (74-99); LDH 685 U/L (313-618); Non-African American GFR(CKD) >90 (>60 ml/min/1.73 sqM); Sodium 137 mmol/L (137-145); Total Bilirubin 0.8 mg/dL (0.2-1.3); Total Protein 7.6 g/dL (6.3-8.2)
[2020-06-03 13:52] LABS: AST 28 U/L (14-36); Alkaline Phosphatase 105 U/L (38-126); Potassium 4.2 mmol/L (3.5-5.1)
--- NOTE | 2020-06-03 14:03 | XR ---
EXAMINATION TYPE: XR chest 1V portable DATE OF EXAM: 06/03/2020 CLINICAL HISTORY: Suspected COVID-19 pneumonia. TECHNIQUE: Portable frontal view of the chest. COMPARISON: None FINDINGS: The cardiomediastinal silhouette is within normal limits for size. Pulmonary vasculature i s normal. Small focal 1.0 cm round nodular opacity over the right mid lung. There is no focal air spa ce opacity, pleural effusion, or pneumothorax seen. The osseous structures are intact. IMPRESSION: Small focal nodular opacity over the right mid lung may represent pulmonary nodule versu s scapular density suggests benign bone island. Recommend CT chest for further characterization.
[2020-06-03 14:14] VITALS: BP 145/88; PULSE 75
[2020-06-03 17:47] LABS: Ferritin 152.4 ng/mL (10.0-291.0)
== END 2020-06-03 14:39 | disposition home or self-care (01) ==
LOC: EC 12:12
DX: U07.1 COVID-19 (principal); F41.9 Anxiety disorder, unspecified; F32.9 Major depressive disorder, single episode, unspecified; I10 Essential (primary) hypertension; Z79.899 Other long term (current) drug therapy
CPT/HCPCS: 36415; 71045; 80053; 82728; 83605; 83615; 83735; 84145; 85025; 85610; 85730; 86140; 87040; 87502; 87635; 93005; 99284

== ENCOUNTER → 2020-06-30 | Outpatient (CLI) | payer MEDICARE ==
--- NOTE | 2020-06-30 17:14 | CT ---
EXAMINATION TYPE: CT chest w con DATE OF EXAM: 06/30/2020 COMPARISON: Chest x-ray 06/03/2020 HISTORY: lung nodule found last month CT DLP: 418.70 mGycm, Automated exposure control for dose reduction was used. CONTRAST: Performed injected with 100 mL of Isovue 300. TECHNIQUE: Axial images were obtained at 5 mm thick sections. Reconstructed images are reviewed on [employer] computer in the coronal plane. FINDINGS: Right lobe thyroid appears to be resected. Left lobe thyroid appears unremarkable. No suspicious lung nodules or focal infiltrates are present. Exam is compared to chest x-ray of 2019. Suspicious nodularity at the level of the right hilum within the right lung is not identified. No enlarged mediastinal or hilar adenopathy is evident. The ascending aorta diameter at the level o f the main pulmonary artery is 3.6 cm. The main pulmonary artery diameter at the bifurcation is 3.1 cm. There is a small hiatal hernia present. Limited CT sections are obtained through the upper abdomen. Abdomen is essentially unremarkable. IMPRESSIONS: 1. No suspicious nodules identified to correspond to findings by chest x-ray. 2. Small hiatal hernia.
== END | disposition home or self-care (01) ==
LOC: RADCTMAIN 08:59
PROVIDERS: ATTEND Family Medicine
DX: K44.9 Diaphragmatic hernia without obstruction or gangrene (principal)
CPT/HCPCS: 71260; Q9967